=== PATIENT | male | born 1990 | race Caucasian/White ===

== ENCOUNTER 2022-07-04 06:50 | Day surgery (SDC) | payer OTHER ==
[~2022-07-04] VITALS: Ht 185.4 cm; Wt 98.2 kg
[~2022-07-04 06:50] MED LIST: ERGO500029 PO; HYDR10TAB PO; LOSA50TA5 PO; NS 1,000 ML IV ONE
[2022-07-04] MEDS ORDERED: propofoL 200 MG/20 ML VIAL As Ordered ONE (07:31)
[2022-07-04] MEDS ORDERED: LIDOCAINE 2% 100MG/5ML SDV (FOR ANES.) As Ordered ONE (07:31)
[2022-07-04 08:26] VITALS: BP 139/81
== END 2022-07-04 08:52 | disposition home or self-care (01) ==
LOC: M OPP 06:50
PROVIDERS: ATTEND Internal Medicine Gastroenterology
DX: R19.4 Change in bowel habit (principal); K44.9 Diaphragmatic hernia without obstruction or gangrene; I10 Essential (primary) hypertension; M19.90 Unspecified osteoarthritis, unspecified site; Z79.899 Other long term (current) drug therapy